=== PATIENT | female | born 1975 | race Caucasian/White ===

== ENCOUNTER 2020-02-17 00:19 | Outpatient (CLI) | payer OTHER, SELFPAY ==
[2020-02-17 18:54] LABS: SARS-CoV-2 RNA PCR Negative
== END 2020-02-17 00:20 | disposition home or self-care (01) ==
LOC: ANHCOVIDDT 00:19
PROVIDERS: PCP Family Medicine; Visit Provider Internal Medicine Gastroenterology
DX: Z01.818 Encounter for other preprocedural examination (principal); Z11.59 Encounter for screening for other viral diseases
CPT/HCPCS: 87635; C9803; U0003

== ENCOUNTER 2020-05-01 00:23 | Outpatient (CLI) | payer OTHER, SELFPAY ==
[2020-05-02 13:40] LABS: SARS-CoV-2 RNA PCR Negative
== END 2020-05-01 00:24 | disposition home or self-care (01) ==
LOC: ANHCOVIDDT 00:23
PROVIDERS: Visit Provider Obstetrics & Gynecology Gynecology
DX: Z01.818 Encounter for other preprocedural examination (principal); Z11.59 Encounter for screening for other viral diseases
CPT/HCPCS: 87635; C9803; U0003

== ENCOUNTER 2020-05-04 00:57 | Day surgery (SDC) | payer OTHER, SELFPAY ==
[2020-04-07 09:33] VITALS: BMI 35.4
--- NOTE | 2020-05-04 07:37 | P.HP_ITS ---
History of Present Illness History of Present Illness Consent: Risks, benefits, and alternatives have been discussed and questions answered. Patient agrees to proceed with procedure. Chief complaint: Abnormal Uterine Bleeding/ Cervical Stenosis Narrative: Norma Castillo is a 45 year old female with bleeding every 2 weeks for the last several cycles. U/s did not delineate the endometrium well. Attempt for hysteroscopy with EMB in the office was not successful due to severe internal os stenosis at 5 cm. Patient given cytotec x 7 days preop. Risks of procedure reviewed including infection, bleeding, and perforation. Possible pathology discussed. Possibility of not being able to enter proper endometrial cavity due to prior ablation reviewed. Patient agrees to proceed. FORMERLY [facility], [facility] Past Medical History Medical History (Updated 05/04/20 @ 07:53 by Macarena Pfeiffer MD) Anxiety Depression (normal spontaneous vaginal delivery) x2 Status post hysteroscopy failed in office 04/09 Surgical History Surgical History (Updated 05/04/20 @ 07:41 by Macarena Pfeiffer MD) S/P bilateral breast reduction S/P endometrial ablation 2007 S/P tubal ligation Family History Family History (Updated 05/04/20 @ 07:51 by Macarena Pfeiffer MD) Mother Hypertension Sibling Liver cancer Social History Social History Smoking status: Never smoker Substance use: never Living arrangements: with family Gender identity (if verbalized by the patient): Female Meds Home Medications and Allergies Home Medications Medication Instructions Recorded Confirmed Type No Home Medications 04/07/20 04/07/20 History Allergies Allergy/AdvReac Type Severity Reaction Status Date / Time Penicillins Allergy Intermediate Nausea and Unverified 02/13/20 10:31 Vomiting red dye Allergy Hives Verified 02/13/20 10:31 Exam Const: General: healthy appearing and alert Orientation/consciousness: patient oriented x3 Resp: Effort & Inspection: normal respiratory effort Auscultation: clear to auscultation bilaterally Cardio: Rate: regular rate Rhythm: regular rhythm GI: GI Palp: Yes Soft to palpation, No Tenderness to palpation present (GI) and No Palpable mass present : External Female Exam: normal external appearance Speculum Exam - Vagina: normal appearance of the vagina and normal vaginal discharge Speculum Exam - Cervix: normal appearance of the cervix and Other cervical findings present (stenotic at 5 cm) Bimanual exam- vagina & uterus: uterine size normal (9.8 cm per u/s) and consistency normal Bimanual Exam- Adnexa, other: normal adnexae and No adnexal tenderness Neuro: General: patient oriented x3 Assessment and Plan Assessment and plan (1) Menorrhagia: Code(s): N92.0 - Excessive and frequent menstruation with regular cycle Status: Acute Assessment and Plan: Plan to proceed with hysteroscopy with D&C if possible. Stenosis secondary to prior ablation.
[2020-05-04] MEDS: LACTATED RINGERS 1,000 ML 30 ML IV CONT ×2 (09:58→13:45)
[2020-05-04 10:03] VITALS: BP 119/80; PULSE 84; TEMP 37.2; O2SAT 97
[2020-05-04] MEDS: ACETAMINOPHEN 500 MG TABLET 1000 MG PO (10:05)
--- NOTE | 2020-05-04 10:51 | WPDANESEPPF ---
Anes - Initial Pre Proc Eval Procedure: Operation Date: 05/04/20 11:30 Proposed Procedures p Hysteroscopy, Dilation and Curettage - Macarena Pfeiffer MD Date/Time: 05/04/20 10:51 Surgeon: Macarena Pfeiffer MD Pre Op Diagnosis: Abnormal Uterine Bleeding/ Cervical Stenosis Patient Data Age: 45 Gender: F Height: 5 ft 3 in Weight: 94.6 kg Last Vital Signs Temp 98.9 F 05/04/20 10:03 Pulse 84 05/04/20 10:03 BP 119/80 05/04/20 10:03 Pulse Ox 97 05/04/20 10:03 Allergies Allergy/AdvReac Type Severity Reaction Status Date / Time Penicillins Allergy Intermediate Nausea and Verified 05/04/20 09:43 Vomiting red dye Allergy Hives Verified 02/13/20 10:31 Home Medications Medication Instructions Recorded Confirmed Type No Home Medications 04/07/20 04/07/20 History Patient hx anesthesia problems: none Family hx anesthesia problems: none PMFSH Past Medical History Medical History (Updated 05/04/20 @ 07:53 by Macarena Pfeiffer MD) Anxiety Depression (normal spontaneous vaginal delivery) x2 Status post hysteroscopy failed in office 04/09 Surgical History Surgical History (Updated 05/04/20 @ 07:41 by Macarena Pfeiffer MD) S/P bilateral breast reduction S/P endometrial ablation 2007 S/P tubal ligation Family History Family History (Updated 05/04/20 @ 07:51 by Macarena Pfeiffer MD) Mother Hypertension Sibling Liver cancer Social History Social History Smoking status: Never smoker Substance use: never Living arrangements: with family Gender identity (if verbalized by the patient): Female Anes - Eval Final PreProcedure Day of Procedure 05/04/20 10:51 Patient weight: obese Heart: regular rate and rhythm Lungs: clear to auscultation Airway: Mallampati scale class II Neurological: alert and oriented Last oral intake: >/= 8 hours ASA classification: II Emergent: no Anesthetic plan: proceed Anesthesia type and monitoring: general GIVS and standard monitoring Informed Consent: The patient's anesthetic plan and its attendant risks and benefits were discussed with the patient/family/POA. Questions were solicited and answers provided to the satisfaction of the patient/family/POA.
--- NOTE | 2020-05-04 12:08 | P.OP_ITS ---
Procedure Note - Detailed Date of procedure: 05/04/20 Pre-op diagnosis: Abnormal Uterine Bleeding/ Cervical Stenosis Post-op diagnosis: same Procedure performed: D&C hysteroscopy Description of procedure: The patient is taken to the operating room placed under anesthesia in the dorsal lithotomy position. She has prepped and draped in the usual sterile fashion. [place] speculum was placed in the vagina. Cervix is grasped on the anterior lip with a tenaculum and injected with 1% lidocaine. The sound is placed and the internal os stenosis is noted at 5cm. The os Finders are used and unable to enter the canal. The cervix is dilated externally up until the 5cm stenosis the diagnostic hysteroscope was placed and what appears to be a possible cavity is noted anteriorly. The dilators are aimed for the previously visualized possible cavity and the cervix is dilated with difficulty. The hysteroscope was replaced and this appears to be a false passage. There appears to be a possible cavity to assist posterior to the false passage the small 3mm hysteroscope is obtained and placed and able to enter this small area. There are areas of significant scarring noted that her jerry- crossed as well as divots noted. The 3mm camera is slowly removed and the entire cervix is inspected and no other cavity is noted. The small curette is used to sharply curette the cavity that has been found with minimal material obtained consistent with the very scarred appearance. All instruments are removed there is a fluid deficit of 800cc. No obvious area of perforation was noted. Anesthesia: MAC and local Surgeon: Macarena Pfeiffer MD Estimated blood loss (mL): 100 Drains: No Packing: No Pathology: yes (curettings) Complications: No immediate complications Condition: stable Disposition: PACU Findings: internal os stenosis; possible entry into endometrial cavity; very scarred appearance c/w prior ablation
[2020-05-04 12:09] VITALS: BP 111/67; PULSE 90; RESP 16; TEMP 36.1; O2SAT 96
[2020-05-04] MEDS: ONDANSETRON INJ 4 MG/2 ML VIAL IV PUSH (12:21)
[2020-05-04 12:50] VITALS: BP 153/80; PULSE 72; RESP 16; O2SAT 96
[2020-05-04 13:10] VITALS: BP 121/78; PULSE 67; RESP 16; O2SAT 96
[2020-05-04 13:40] VITALS: BP 120/79; PULSE 70; RESP 16; O2SAT 97
== END 2020-05-04 13:55 | disposition home or self-care (01) ==
PROVIDERS: PCP Family Medicine; Visit Provider Obstetrics & Gynecology Gynecology
PROC: 0U5B8ZZ Destruction of Endometrium, Via Natural or Artificial Opening Endoscopic (ICD-10-PCS; CPT 58563; principal; 2020-05-04 11:30)
DX: N93.9 Abnormal uterine and vaginal bleeding, unspecified (principal); N88.2 Stricture and stenosis of cervix uteri; N85.8 Other specified noninflammatory disorders of uterus; F41.9 Anxiety disorder, unspecified; F32.9 Major depressive disorder, single episode, unspecified; E66.9 Obesity, unspecified; Z68.36 Body mass index [BMI] 36.0-36.9, adult; Z88.0 Allergy status to penicillin
CPT/HCPCS: 58558; 88305; A9270; J2250; J2405; J2704; J3010; J7030; J7120

== ENCOUNTER 2022-06-06 00:33 | Day surgery (SDC) | payer OTHER, SELFPAY ==
[2022-05-20 11:39] VITALS: BMI 37.8
--- NOTE | 2022-06-06 08:40 | WPDANESEPPF ---
Anes - Initial Pre Proc Eval Procedure: Operation Date: 06/06/22 10:15 Proposed Procedures p Screening Colonoscopy - Jose David Box MD Date/Time: 06/06/22 08:40 Surgeon: Jose David Box MD Pre Op Diagnosis: neoplasm screening Patient Data Age: 47 Gender: F Height: 1.63 m Weight: 100 kg Allergies Allergy/AdvReac Type Severity Reaction Status Date / Time Penicillins Allergy Intermediate Nausea and Verified 06/06/22 09:23 Vomiting red dye Allergy Hives Verified 06/06/22 09:23 Home Medications Medication Instructions Recorded Confirmed Type drospirenone 3 mg-ethinyl 1 tablet DAILY 05/20/22 05/20/22 History estradiol 0.02 mg tablet (Vestura (28)) Patient hx anesthesia problems: none Family hx anesthesia problems: none Results Review: All pre-operative results and documents have been reviewed as part of the pre-operative evaluation. [facility] Past Medical History Medical History (Updated 05/04/20 @ 07:53 by Macarena Pfeiffer MD) Anxiety Depression (normal spontaneous vaginal delivery) x2 Status post hysteroscopy failed in office 04/09 Surgical History Surgical History (Updated 05/04/20 @ 07:41 by Macarena Pfeiffer MD) S/P bilateral breast reduction S/P endometrial ablation 2007 S/P tubal ligation Family History Family History (Updated 05/04/20 @ 07:51 by Macarena Pfeiffer MD) Mother Hypertension Sibling Liver cancer Social History Social History Smoking status: Never smoker Substance use: never Living arrangements: with family Gender identity (if verbalized by the patient): Female Anes - Eval Final PreProcedure Day of Procedure 06/06/22 08:40 Patient weight: obese Heart: regular rate and rhythm Lungs: clear to auscultation Airway: Mallampati scale class III Neurological: alert and oriented Last oral intake: >/= 8 hours ASA classification: II Emergent: no Anesthetic plan: proceed Anesthesia type and monitoring: general GIVS and standard monitoring Results Review: All pre-operative results and documents have been reviewed as part of the pre-operative evaluation. Informed Consent: The patient's anesthetic plan and its attendant risks and benefits were discussed with the patient/family/POA. Questions were solicited and answers provided to the satisfaction of the patient/family/POA.
[2022-06-06 09:24] VITALS: BP 146/88; PULSE 98; RESP 18; TEMP 36.6; O2SAT 98
[2022-06-06] MEDS: LACTATED RINGERS 1,000 ML 150 ML IV CONT (09:31)
--- NOTE | 2022-06-06 09:35 | PM.HPGS ---
History of Present Illness History of Present Illness Consent: Risks, benefits, and alternatives have been discussed and questions answered. Patient agrees to proceed with procedure. Chief complaint: neoplasm screening Narrative: Norma Castillo is a 47 year old female here for first screening colonoscopy Review of Systems Constitutional: Constitutional: Denies headache(s) and Denies weakness Eyes: Eyes: Denies blurry vision ENT: Reports Normal hearing present, Denies headache(s) and Denies neck pain Cardiovascular: Cardiovascular: Denies chest pain and Denies dyspnea Respiratory: Respiratory: Denies dyspnea Gastrointestinal: Gastrointestinal: Reports no additional gastrointestinal complaints Genitourinary: Genitourinary: Denies dysuria Musculoskeletal: Musculoskeletal: Denies neck pain Integumentary/Breasts: Skin/Breast: Denies dry skin Neurologic: Reports Normal hearing present, Denies headache(s) and Denies weakness Psychiatric: Psychiatric: Denies anxiety Endocrine: Endocrine: Denies change in body appearance Hematologic/Lymphatic: Hematologic/Lymphatic: Denies easy bleeding Allergic/Immunologic: Allergic/Immunologic: Denies urticaria PMFSH Past Medical History Medical History (Updated 06/06/22 @ 09:35 by Jose David Box MD) Anxiety Colon cancer screening Depression (normal spontaneous vaginal delivery) x2 Status post hysteroscopy failed in office 04/09 Surgical History Surgical History (Updated 05/04/20 @ 07:41 by Macarena Pfeiffer MD) S/P bilateral breast reduction S/P endometrial ablation 2007 S/P tubal ligation Family History Family History (Updated 05/04/20 @ 07:51 by Macarena Pfeiffer MD) Mother Hypertension Sibling Liver cancer Social History Social History Smoking status: Never smoker Substance use: never Living arrangements: with family Gender identity (if verbalized by the patient): Female Meds Home Medications and Allergies Home Medications Medication Instructions Recorded Confirmed Type drospirenone 3 mg-ethinyl 1 tablet DAILY 05/20/22 05/20/22 History estradiol 0.02 mg tablet (Vestura (28)) Allergies Allergy/AdvReac Type Severity Reaction Status Date / Time Penicillins Allergy Intermediate Nausea and Verified 06/06/22 09:23 Vomiting red dye Allergy Hives Verified 06/06/22 09:23 Vital Signs Vital Signs - 24 hr 06/06/22 09:24 Temperature 97.9 F Pulse Rate 98 Respiratory Rate 18 Blood Pressure 146/88 H Pulse Oximetry 98 Oxygen Delivery Room Air Exam Const: General: comfortable and no acute distress HENMT: Face/Nose/Sinus: Normal nares present Eyes: General: appearance normal, both eyes and all related structures Neck: Neck: no JVD Resp: Auscultation: clear to auscultation bilaterally Cardio: Rate: regular rate Rhythm: regular rhythm GI: Inspection: non-distended GI Palp: Yes Soft to palpation Skin: General skin exam: normal color Neuro: General: gait normal Speech: normal speech Extrem: General: normal to inspection Psych: Mental Status: mental status grossly normal Assessment and Plan Assessment and plan (1) Colon cancer screening: Code(s): Z12.11 - Encounter for screening for malignant neoplasm of colon Status: Acute Assessment and Plan: colonoscopy
[2022-06-06 09:52] VITALS: BP 115/80; PULSE 83; RESP 17; O2SAT 97
[2022-06-06 10:02] VITALS: BP 123/76; PULSE 84; RESP 17; O2SAT 97
[2022-06-06 10:12] VITALS: BP 117/76; PULSE 84; RESP 14; O2SAT 99
== END 2022-06-06 10:26 | disposition home or self-care (01) ==
PROVIDERS: Visit Provider Internal Medicine Gastroenterology
PROC: 0DJD8ZZ Inspection of Lower Intestinal Tract, Via Natural or Artificial Opening Endoscopic (ICD-10-PCS; CPT 45378; principal; 2022-06-06 10:15)
DX: Z12.11 Encounter for screening for malignant neoplasm of colon (principal); K63.5 Polyp of colon; K57.30 Diverticulosis of large intestine without perforation or abscess without bleeding; K64.8 Other hemorrhoids; F41.9 Anxiety disorder, unspecified; F32.A Depression, unspecified; E66.9 Obesity, unspecified; Z68.38 Body mass index [BMI] 38.0-38.9, adult
CPT/HCPCS: 45385; 88305; J2704; J7120

== ENCOUNTER 2024-02-14 07:36 | Outpatient (CLI) | payer OTHER, SELFPAY ==
--- NOTE | ~2024-02-14 | CT_ITS ---
EXAMINATION: CT abdomen pelvis wo/w con DATE: 02/14/2024 08:20 INDICATION: Microscopic hematuria. TECHNIQUE: Computed tomography (CT) of the abdomen and pelvis was performed without and with intraven ous contrast using a total of 130 mL Omnipaque-350 intravenous contrast with a double-bolus technique for simultaneous opacification of the renal parenchyma and renal collecting system. Automated exposu re control and iterative reconstruction technique were employed. The dose-length product was 3055.02 mGy-cm. COMPARISON: CT abdomen and pelvis 05/28/2013 FINDINGS: The visualized portions of the lung bases demonstrate mild atelectasis. No pleural effusion. The hear t size is normal. No pericardial effusion. There is diffuse hepatic steatosis. There are changes of c holecystectomy. The spleen, pancreas, and adrenal glands are normal. There are cysts in right kidney measuring up to 6 mm. There is a 4 mm stone in right kidney. There is a 6.8 cm enhancing mass in left kidney, consistent with renal cell carcinoma. The ureters are well opacified and are normal. The john paul dder is normal. There are bilateral tubal ligation clips. There is diverticulosis of the colon withou t evidence of diverticulitis. The appendix is normal. There are no pathologically enlarged lymph node s. There is no free intraperitoneal fluid. There is mild thoracic spondylosis. There is a benign bone island in L4 vertebral body. IMPRESSION: 1. 6.8 cm enhancing mass in left kidney, consistent with renal cell carcinoma. 2. 4 mm nonobstructing right kidney stone. Reviewed, dictated and finalized at location A.
[2024-02-14 07:56] LABS: Estimated Glomerular Filt Rate > 60
== END 2024-02-14 07:37 | disposition home or self-care (01) ==
PROVIDERS: Visit Provider Physician Assistant
DX: R31.29 Other microscopic hematuria (principal); N20.0 Calculus of kidney
CPT/HCPCS: 74178; Q9967